=== PATIENT | female | born 1990 | race Caucasian/White ===

== ENCOUNTER 2023-02-09 08:24 | Outpatient (AMB) | payer OTHER, SELFPAY ==
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
[2023-02-09 08:38] VITALS: BP 117/69; PULSE 85; O2SAT 100; BMI 27.1
== END 2023-02-09 09:23 | disposition home or self-care (01) ==
PROVIDERS: PCP Nurse Practitioner Family; Visit Provider Nurse Practitioner Family
DX: M47.816 Spondylosis without myelopathy or radiculopathy, lumbar region (principal); M54.50 Low back pain, unspecified; M53.3 Sacrococcygeal disorders, not elsewhere classified; M62.830 Muscle spasm of back
CPT/HCPCS: 99204

== ENCOUNTER → 2023-02-09 08:24 | Outpatient (BNVA) | payer OTHER, SELFPAY | PROVIDERS: PCP Nurse Practitioner Family; Visit Provider Nurse Practitioner Family ==

== ENCOUNTER 2023-03-11 10:58 | Outpatient (REF) | payer OTHER, SELFPAY ==
--- NOTE | ~2023-03-11 | XR_ITS ---
EXAMINATION: XR LUMBAR SPINE, 6 VIEWS XR SACROILIAC JOINTS, 3 VIEWS CLINICAL INFORMATION: Low back pain COMPARISON: None available. TECHNIQUE: 6 views of the lumbar spine 3 views of the bilateral sacroiliac joints FINDINGS: 5 nonrib-bearing lumbar-type vertebral bodies. No acute visible fracture or dislocation. Slight levocurvature of the mid to lower lumbar spine. Bilateral sacroiliac joints are patent. Slight exaggeration of the lumbar lordosis. No overt dynamic instability on flexion-extension views. Vertebral body heights and disc spaces are maintained. Posterior elements are intact. Paraspinal soft tissues are unremarkable. Visualized bowel gas is unremarkable. Pelvic phleboliths are noted. XR/XR sacroiliac joint min 3V IMPRESSION: 1. No acute visible fracture or dislocation. 2. Slight levocurvature of the mid to lower lumbar spine. 3. Slight exaggeration of the lumbar lordosis.
--- NOTE | ~2023-03-11 | XR_ITS ---
EXAMINATION: XR LUMBAR SPINE, 6 VIEWS XR SACROILIAC JOINTS, 3 VIEWS CLINICAL INFORMATION: Low back pain COMPARISON: None available. TECHNIQUE: 6 views of the lumbar spine 3 views of the bilateral sacroiliac joints FINDINGS: 5 nonrib-bearing lumbar-type vertebral bodies. No acute visible fracture or dislocation. Slight levocurvature of the mid to lower lumbar spine. Bilateral sacroiliac joints are patent. Slight exaggeration of the lumbar lordosis. No overt dynamic instability on flexion-extension views. Vertebral body heights and disc spaces are maintained. Posterior elements are intact. Paraspinal soft tissues are unremarkable. Visualized bowel gas is unremarkable. Pelvic phleboliths are noted. XR/XR lumbar spine 6V w bending IMPRESSION: 1. No acute visible fracture or dislocation. 2. Slight levocurvature of the mid to lower lumbar spine. 3. Slight exaggeration of the lumbar lordosis.
== END 2023-03-11 10:59 | disposition home or self-care (01) ==
LOC: HO.XRAY 10:58
PROVIDERS: PCP Nurse Practitioner Family; Visit Provider Nurse Practitioner Family
DX: M47.816 Spondylosis without myelopathy or radiculopathy, lumbar region (principal); M54.50 Low back pain, unspecified; M53.3 Sacrococcygeal disorders, not elsewhere classified
CPT/HCPCS: 72114; 72202